=== PATIENT | female | born 1970 | race American Indian/Alaskan Native ===

== ENCOUNTER 2019-03-18 14:16 | Emergency (ER) | payer SELFPAY ==
--- NOTE | 2019-03-18 15:55 | Event Note ---
ED Screening Note Date of service: 03/18/19 Time: 15:52 ED Screening Note: Pt complains of shortness of breath x this morning. states cough x 2 days with brown/green mucus +smoker and CHF denies hx of asthma denies fever + left leg pain This initial assessment/diagnostic orders/clinical plan/treatment(s) is/are subject to change based on patients health status, clinical progression and re- assessment by fellow clinical providers in the ED. Further treatment and workup at subsequent clinical providers discretion. Patient/guardian urged not to elope from the ED as their condition may be serious if not clinically assessed and managed. Initial orders include: CXR labs US
[2019-03-18] MEDS ORDERED: ASPIRIN 81 MG TAB CHEW PO ONE (15:57)
--- NOTE | 2019-03-18 16:39 | XRay Report ---
CHEST 2 VIEWS INDICATION / CLINICAL INFORMATION: shortness of breath, chest pain. COMPARISON: None available. FINDINGS: SUPPORT DEVICES: None. HEART / MEDIASTINUM: Cardiomegaly.. LUNGS / PLEURA: Trace interstitial edema noted bilaterally. Tiny pleural effusions. Signer Name: Bernardo Shell MD Signed: 03/18/2019 4:35 PM Workstation Name: [id number]
--- NOTE | 2019-03-18 17:02 | Vascular Lab Report ---
DUPLEX DOPPLER LOWER EXTREMITY VEINS, LEFT INDICATION: pain. TECHNIQUE: Duplex doppler imaging was performed through the veins of the left lower extremity using venous compr ession and other maneuvers. COMPARISON: None available. FINDINGS: Common Femoral vein: Negative. Femoral vein: Negative. Popliteal vein: Negative. Calf veins: Negative. Additional findings: None. IMPRESSION: 1. No sonographic evidence for DVT in the left lower extremity. Signer Name: Luan Orellana MD Signed: 03/18/2019 4:57 PM Workstation Name: [id number]
[2019-03-18] MEDS ORDERED: NITROGLYCERIN 0.4 MG TAB SUBL SL PRN (17:22)
[2019-03-18] MEDS ORDERED: FUROSEMIDE 40 MG/4 ML INJ IV ONE (17:22)
[2019-03-18 18:23] LABS: Hematocrit 38.1 % (30.3-42.9); Hemoglobin 12.6 gm/dl (10.1-14.3); Mean Corpuscular HGB Conc 33 % (30-34); Mean Corpuscular Volume 97 fl (79-97); Platelet Count 174 K/mm3 (140-440); Red Blood Count 3.93 M/mm3 (3.65-5.03); Red Cell Distribution Width 18.7 % (13.2-15.2)
[2019-03-18] MEDS ORDERED: ASPIRIN 81 MG TAB CHEW ONE (18:37)
[2019-03-18 18:43] LABS: BUN/Creatinine Ratio 14; Blood Urea Nitrogen 10 mg/dL (7-17); Calcium 9.2 mg/dL (8.4-10.2); Hemolysis Index 0
[2019-03-18 18:47] LABS: Albumin 3.8 g/dL (3.9-5); Bilirubin,Direct 0.4 mg/dL (0-0.2)
--- NOTE | 2019-03-18 19:20 | Emergency Department Report ---
ED General Adult HPI - General Chief complaint: Dyspnea/Respdistress Stated complaint: SOB/COUGH/NUMBNESS L LEG Time Seen by Provider: 03/18/19 15:52 Source: patient Mode of arrival: Ambulatory Limitations: No Limitations - History of Present Illness Initial comments: Patient is a 49-year-old Female who states she's had some shortness of breath for the past 2 days. Patient states that the shortness of breath is accompanied with a productive cough. Cough is productive of clear sputum. Patient also states she's had some chest pressure as well as been continuous also for the last 2 days. Patient complains of numbness to the bilateral lower extremities with mild swelling. Patient states she has some pain when she takes a deep breath. Patient does have a history of congestive heart failure been out of her Lasix for approximately a week. Patient denies fevers chills nausea vomiting diarrhea at this time. Patient states the chest discomfort as 7 out of 10 in severity. - Related Data Previous Rx's Medication Instructions Recorded Last Taken Type Dicyclomine [Bentyl] 20 mg PO QID #10 tablet 03/18/19 Unknown Rx Furosemide [Lasix] 20 mg PO QDAY #30 tablet 03/18/19 Unknown Rx Ondansetron [Zofran Odt] 4 mg PO Q8HR #10 tab.rapdis 03/18/19 Unknown Rx traMADol [Ultram] 50 mg PO Q6HR PRN #12 tablet 03/18/19 Unknown Rx Allergies Allergy/AdvReac Type Severity Reaction Status Date / Time No Known Allergies Allergy Unverified 03/18/19 14:34 ED Review of Systems ROS: Stated complaint: SOB/COUGH/NUMBNESS L LEG Other details as noted in HPI Comment: All other systems reviewed and negative ED Past Medical Hx - Past Medical History Hx Congestive Heart Failure: Yes Hx Diabetes: Yes - Social History Smoking Status: Current Every Day Smoker Substance Use Type: None - Medications Home Medications: Home Medications Medication Instructions Recorded Confirmed Last Taken Type Dicyclomine [Bentyl] 20 mg PO QID #10 tablet 03/18/19 Unknown Rx Furosemide [Lasix] 20 mg PO QDAY #30 tablet 03/18/19 Unknown Rx Ondansetron [Zofran Odt] 4 mg PO Q8HR #10 tab.rapdis 03/18/19 Unknown Rx traMADol [Ultram] 50 mg PO Q6HR PRN #12 tablet 03/18/19 Unknown Rx ED Physical Exam - General Limitations: No Limitations General appearance: alert, in no apparent distress - Head Head exam: Present: atraumatic, normocephalic - Eye Eye exam: Present: normal appearance - ENT ENT exam: Present: mucous membranes moist - Neck Neck exam: Present: normal inspection - Respiratory Respiratory exam: Present: rales. Absent: normal lung sounds bilaterally, respiratory distress, wheezes, rhonchi - Cardiovascular Cardiovascular Exam: Present: regular rate, normal rhythm, normal heart sounds. Absent: systolic murmur, diastolic murmur, rubs, gallop - GI/Abdominal GI/Abdominal exam: Present: soft, normal bowel sounds. Absent: distended, tenderness, guarding, rebound - Extremities Exam Extremities exam: Present: normal inspection - Back Exam Back exam: Present: normal inspection - Neurological Exam Neurological exam: Present: alert, oriented X3 - Psychiatric Psychiatric exam: Present: normal affect, normal mood - Skin Skin exam: Present: warm, dry, intact, normal color. Absent: rash ED Course Vital Signs 03/18/19 03/18/19 14:20 18:31 Temperature 97.7 F Pulse Rate 107 H 98 H Respiratory 18 Rate Blood Pressure 167/108 162/102 O2 Sat by Pulse 99 Oximetry - Reevaluation(s) Reevaluation #1: 03/18/19 19:18 Patient's last been reviewed. She's had 2 negative troponins. Patient's BNP is elevated and with the patient having some trace interstitial edema on chest x- ray does appear that the patient is an exacerbation of her congestive heart failure. Patient also has a slight elevation of her bilirubin which was un expected. Asked the patient does she have any pain when she eats and she does confirm that for the past month she's had some increased pain with eating. Patient states the pain is in the left upper quadrant and epigastrium with some radiation into the chest. Ultrasound of the patient's gallbladder will be done to rule out cholecystitis versus cholelithiasis. ED Medical Decision Making - Lab Data Result diagrams: 03/18/19 17:46 03/18/19 17:46 Lab Results 03/18/19 03/18/19 03/18/19 Range/Units 17:46 17:46 17:46 WBC 5.1 (4.5-11.0) K/mm3 RBC 3.93 (3.65-5.03) M/mm3 Hgb 12.6 (10.1-14.3) gm/dl Hct 38.1 (30.3-42.9) % MCV 97 (79-97) fl MCH 32 (28-32) pg MCHC 33 (30-34) % RDW 18.7 H (13.2-15.2) % Plt Count 174 (140-440) K/mm3 Sodium 139 (137-145) mmol/L Potassium 4.0 (3.6-5.0) mmol/L Chloride 103.9 (98-107) mmol/L Carbon Dioxide 21 L (22-30) mmol/L Anion Gap 18 mmol/L BUN 10 (7-17) mg/dL Creatinine 0.7 (0.7-1.2) mg/dL Estimated GFR > 60 ml/min BUN/Creatinine Ratio 14 % Glucose 215 H (65-100) mg/dL Calcium 9.2 (8.4-10.2) mg/dL Total Bilirubin 2.80 H (0.1-1.2) mg/dL Direct Bilirubin 0.4 H (0-0.2) mg/dL Indirect Bilirubin 2.4 mg/dL AST 13 (5-40) units/L ALT 8 (7-56) units/L Alkaline Phosphatase 70 (35-129) units/L Troponin T < 0.010 (0.00-0.029) ng/mL NT-Pro-B Natriuret Pep (0-450) pg/mL Total Protein 7.2 (6.3-8.2) g/dL Albumin 3.8 L (3.9-5) g/dL Albumin/Globulin Ratio 1.1 % 03/18/19 03/18/19 Range/Units 17:46 17:46 WBC (4.5-11.0) K/mm3 RBC (3.65-5.03) M/mm3 Hgb (10.1-14.3) gm/dl Hct (30.3-42.9) % MCV (79-97) fl MCH (28-32) pg MCHC (30-34) % RDW (13.2-15.2) % Plt Count (140-440) K/mm3 Sodium (137-145) mmol/L Potassium (3.6-5.0) mmol/L Chloride (98-107) mmol/L Carbon Dioxide (22-30) mmol/L Anion Gap mmol/L BUN (7-17) mg/dL Creatinine (0.7-1.2) mg/dL Estimated GFR ml/min BUN/Creatinine Ratio % Glucose (65-100) mg/dL Calcium (8.4-10.2) mg/dL Total Bilirubin (0.1-1.2) mg/dL Direct Bilirubin (0-0.2) mg/dL Indirect Bilirubin mg/dL AST (5-40) units/L ALT (7-56) units/L Alkaline Phosphatase (35-129) units/L Troponin T < 0.010 (0.00-0.029) ng/mL NT-Pro-B Natriuret Pep 7486 H (0-450) pg/mL Total Protein (6.3-8.2) g/dL Albumin (3.9-5) g/dL Albumin/Globulin Ratio % - EKG Data -: EKG Interpreted by Me - EKG Data 03/18/19 19:19 EKG shows sinus tachycardia rate of 107. [place] is slightly leftward. Intervals show a prolonged QT. Patient with anteroseptal Q waves. There are no ST segment elevations or depressions. - Radiology Data Radiology results: report reviewed, image reviewed (ultrasound of the abdomen shows no evidence of sonographic) DUPLEX DOPPLER LOWER EXTREMITY VEINS, LEFT INDICATION: pain. TECHNIQUE: Duplex doppler imaging was performed through the veins of the left lower extremity using venous compression and other maneuvers. COMPARISON: None available. FINDINGS: Common Femoral vein: Negative. Femoral vein: Negative. Popliteal vein: Negative. Calf veins: Negative. Additional findings: None. IMPRESSION: 1. No sonographic evidence for DVT in the left lower extremity. Signer Name: Luan Orellana MD Signed: 03/18/2019 4:57 PM Workstation Name: [id number] CHEST 2 VIEWS INDICATION / CLINICAL INFORMATION: shortness of breath, chest pain. COMPARISON: None available. FINDINGS: SUPPORT DEVICES: None. HEART / MEDIASTINUM: Cardiomegaly.. LUNGS / PLEURA: Trace interstitial edema noted tobias aterally. Tiny pleural effusions. Signer Name: Bernardo Shell MD Signed: 03/18/2019 4:35 PM Workstation Name: [id number] - Medical Decision Making Patient is a 49-year-old asthmatic female presenting with shortness of breath for the past several days. The patient states that she ran out of her Lasix approximately ago. Patient also does have some pain with eating for possibly her mouth. Patient was given IV Lasix here in the emergency department she has diuresis. Patient is able to her to him from the bathroom with these currently. Patient's chest pain has subsided she has 2 negative troponins. 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 Patient restarted on her Lasix. Patient given GI for follow-up as well concerning the hyperbilirubinemia. Critical care attestation.: If time is entered above; I have spent that time in minutes in the direct care of this critically ill patient, excluding procedure time. ED Disposition Clinical Impression: Atypical chest pain, Hyperbilirubinemia CHF exacerbation Qualifiers: Heart failure type: unspecified Qualified Code(s): I50.9 - Heart failure, unspecified Disposition: TO HOME OR SELFCARE Is pt being admited?: No Does the pt Need Aspirin: No Condition: Stable Instructions: Heart Failure (ED), Chest Pain (ED), Biliary Colic (ED) Additional Instructions: Please follow-up with your oil spreader operator this week Prescriptions: Dicyclomine [Bentyl] 20 mg PO QID #10 tablet Furosemide [Lasix] 20 mg PO QDAY #30 tablet traMADol [Ultram] 50 mg PO Q6HR PRN #12 tablet PRN Reason: Pain Ondansetron [Zofran Odt] 4 mg PO Q8HR #10 tab.alison Referrals: PRIMARY CARE, [Primary Care Provider] - 3-5 Days [facility] [Provider Group] - 3-5 Days Time of Disposition: 22:22
--- NOTE | 2019-03-18 22:00 | Ultrasound Report ---
ULTRASOUND ABDOMEN, LIMITED (RIGHT UPPER QUADRANT) INDICATION: epigastric pain. COMPARISON: None available. FINDINGS: Pancreas: Visualized portion shows no significant abnormality. Liver: Normal. Gallbladder: Normal. Bile ducts: Normal. Common Bile Duct measures 5 mm. Free fluid: None. Additional Findings: None. IMPRESSION: 1. No sonographic abnormality of the right upper quadrant. Signer Name: Luan Orellana MD Signed: 03/18/2019 9:55 PM Workstation Name: [id number]
[2019-03-18 23:19] VITALS: BP 155/90
== END 2019-03-18 22:30 | disposition home or self-care (01) ==
LOC: ED 14:16
DX: I50.9 Heart failure, unspecified (principal); E80.6 Other disorders of bilirubin metabolism; F17.200 Nicotine dependence, unspecified, uncomplicated
CPT/HCPCS: 36415; 71046; 76705; 80048; 80076; 83880; 84484; 85027; 93005; 93010; 93971; 96374; 99285; J1940

== ENCOUNTER 2019-03-31 20:43 | Emergency (ER) | payer SELFPAY ==
--- NOTE | 2019-03-31 20:57 | Event Note ---
ED Screening Note ED Screening Note: right sided rib pain that began today +n/v no fever no diarrhea no urinary sx PMHx CHF, DM, HTN states she took her medicines today This initial assessment/diagnostic orders/clinical plan/treatment(s) is/are subject to change based on patients health status, clinical progression and re- assessment by fellow clinical providers in the ED. Further treatment and workup at subsequent clinical providers discretion. Patient/guardian urged not to elope from the ED as their condition may be serious if not clinically assessed and managed. Initial orders include: labs, UA, EKG, XR
[2019-03-31] MEDS ORDERED: KETOROLAC 30 MG/1 ML INJ IV ONE (21:40)
--- NOTE | 2019-03-31 21:41 | Emergency Department Report ---
ED General Adult HPI - General Chief complaint: Back Pain/Injury Stated complaint: NAUSEA/FLANK PAIN Time Seen by Provider: 03/31/19 20:55 Source: patient, RN notes reviewed, old records reviewed Mode of arrival: Ambulatory Limitations: No Limitations - History of Present Illness Initial comments: This is a 49-year-old female. This patient is not known to this provider previously. She typically follows at [facility]. Has a history of hypertension, obesity and congestive heart failure. The patient reports being in her usual state of health earlier on today, when at or around 8:00 in the morning, she began to cough, and then developed constant right sided thoracic, posterior scapular, and breast wall pain. The pain is sharp and throbbing and constant. It increases with palpation and coughing. The patient endorses cough, and chronic shortness of breath. She denies DVT and pulmonary embolism risk factors. She denies urinary symptoms. She has chronic lower extremity edema which she does not believe is new, worsened or different. During the entire history and physical examination, I am plaster helper and escorted by Ms. Joi Peter -: Sudden Location: back Radiation: other Consistency: other Improves with: other Worsens with: other - Related Data Previous Rx's Medication Instructions Recorded Last Taken Type Dicyclomine [Bentyl] 20 mg PO QID #10 tablet 03/18/19 Unknown Rx Furosemide [Lasix] 20 mg PO QDAY #30 tablet 03/18/19 Unknown Rx Ondansetron [Zofran Odt] 4 mg PO Q8HR #10 tab.rapdis 03/18/19 Unknown Rx Acetaminophen [Non-Aspirin Extra 500 mg PO Q6HR PRN #30 tablet 03/31/19 Unknown Rx Strength] Albuterol Sulfate [Proair 90 mcg IH Q4HR PRN #2 aer.pow.ba 03/31/19 Unknown Rx Respiclick] Furosemide [Lasix TAB] 40 mg PO BID #14 tablet 03/31/19 Unknown Rx Ibuprofen [Motrin] 600 mg PO Q8H PRN #30 tablet 03/31/19 Unknown Rx Magnesium Oxide 400 mg PO QDAY #10 tablet 03/31/19 Unknown Rx Allergies Allergy/AdvReac Type Severity Reaction Status Date / Time No Known Allergies Allergy Unverified 03/18/19 14:34 ED Review of Systems ROS: Stated complaint: NAUSEA/FLANK PAIN Other details as noted in HPI Constitutional: denies: fever, weakness ENT: congestion Respiratory: cough, shortness of breath Cardiovascular: edema. denies: chest pain Gastrointestinal: denies: nausea, vomiting Genitourinary: denies: dysuria Musculoskeletal: arthralgia, myalgia Skin: denies: lesions Neurological: denies: weakness Psychiatric: anxiety Hematological/Lymphatic: denies: easy bleeding ED Past Medical Hx - Past Medical History Previous Medical History?: Yes Hx Hypertension: Yes Hx Congestive Heart Failure: Yes Hx Diabetes: Yes - Surgical History Past Surgical History?: Yes Additional Surgical History: Tubal Ligation - Social History Smoking Status: Current Every Day Smoker Substance Use Type: None - Medications Home Medications: Home Medications Medication Instructions Recorded Confirmed Last Taken Type Dicyclomine [Bentyl] 20 mg PO QID #10 tablet 03/18/19 Unknown Rx Furosemide [Lasix] 20 mg PO QDAY #30 tablet 03/18/19 Unknown Rx Ondansetron [Zofran Odt] 4 mg PO Q8HR #10 tab.rapdis 03/18/19 Unknown Rx Acetaminophen [Non-Aspirin Extra 500 mg PO Q6HR PRN #30 tablet 03/31/19 Unknown Rx Strength] Albuterol Sulfate [Proair 90 mcg IH Q4HR PRN #2 aer.pow.ba 03/31/19 Unknown Rx Respiclick] Furosemide [Lasix TAB] 40 mg PO BID #14 tablet 03/31/19 Unknown Rx Ibuprofen [Motrin] 600 mg PO Q8H PRN #30 tablet 03/31/19 Unknown Rx Magnesium Oxide 400 mg PO QDAY #10 tablet 03/31/19 Unknown Rx ED Physical Exam - General Limitations: No Limitations, Other (plaster helper by Ms. Joi Peter) General appearance: alert, in no apparent distress - Head Head exam: Present: atraumatic, normocephalic - Eye Eye exam: Present: normal appearance, EOMI. Absent: nystagmus - ENT ENT exam: Present: normal exam, normal orophraynx, mucous membranes moist, normal external ear exam - Neck Neck exam: Present: normal inspection, full ROM. Absent: tenderness, meningismus - Respiratory Respiratory exam: Present: wheezes, rales, chest wall tenderness - Cardiovascular Cardiovascular Exam: Present: normal rhythm, tachycardia, normal heart sounds. Absent: systolic murmur, diastolic murmur, rubs, gallop - GI/Abdominal GI/Abdominal exam: Present: soft. Absent: distended, tenderness, guarding, rebound, rigid, pulsatile mass - Extremities Exam Extremities exam: Present: normal inspection, full ROM, pedal edema, other (2+ pulses noted in the bilateral upper, lower extremities. There is no long bone tenderness. Musculoskeletal compartments are soft. The pelvis is stable.). Absent: calf tenderness - Back Exam Back exam: Present: normal inspection. Absent: tenderness, CVA tenderness (R), CVA tenderness (L), paraspinal tenderness, vertebral tenderness - Neurological Exam Neurological exam: Present: alert, oriented X3, other (there is no facial droop. The tongue is midline. Extraocular movements are intact bilaterally. Patient speaking in full complete sentences. Shoulder shrug is intact bilaterally. Hearing is grossly intact bilaterally. Visual acuity intact to finger counting and color perception at a close distance. 5/5 strength 4 extremities. Sensation intact to light touch in 4 extremities.). Absent: motor sensory deficit - Psychiatric Psychiatric exam: Present: anxious - Skin Skin exam: Present: warm, dry, intact, normal color. Absent: rash ED Course Vital Signs 03/31/19 03/31/19 03/31/19 20:50 21:46 22:00 Temperature 98.7 F Pulse Rate 121 H 115 H Respiratory 20 22 Rate Blood Pressure 204/114 177/109 O2 Sat by Pulse 96 100 97 Oximetry 03/31/19 03/31/19 03/31/19 22:16 22:30 22:40 Temperature Pulse Rate 108 H 107 H 107 H Respiratory 21 22 18 Rate Blood Pressure 180/110 182/110 182/110 O2 Sat by Pulse 99 100 Oximetry 03/31/19 22:45 Temperature Pulse Rate 89 Respiratory 18 Rate Blood Pressure 156/95 O2 Sat by Pulse 97 Oximetry - Reevaluation(s) Reevaluation #1: 03/31/19 22:23 Torrential diagnosis, including not limited to: Costochondritis, pneumonia, congestive heart failure, bronchitis, acute coronary syndrome Assessment and plan: 49-year-old female with reproducible back, chest wall pain and breast pain, very faint rales on physical examination, lower extremity edema, tachycardia suspect CHF, with hypertensive urgency, and reproducible muscular pain. X-ray the chest interpretation is reviewed and appreciated, however, I think it is unlikely the patient has reactive airway disease. She denies DVT and pulmonary embolism risk factors. She is low risk by well's criteria. We will treat her symptoms, given labetalol for hypertension, and tachycardia, Toradol for pain, and we will reassess. Her EKG today is abnormal, but it appears to be unchanged from her prior EKG. She endorses no urinary symptoms, there is no CVA tenderness, therefore, kidney infection is unlikely. Reevaluation #2: 03/31/19 22:49 Tachycardia improved. Hypertension improved. Laboratory studies reviewed and appreciated. Patient endorses more than 8 hours of constant back and chest wall pain, troponin negative times one, therefore, this is unlikely to be an acute myocardial infarction. Patient may be discharged with pain medicine, cough medicine, we will adjust her diuretic dose, she can follow-up with an outpatient primary care doctor. Reevaluation #3: 03/31/19 22:54 Elevated bilirubin reviewed and appreciated, nonspecific finding, this was present on previous evaluation, the patient can follow-up with an outpatient primary care doctor or classroom instructor for this. This is unlikely to be congestive hepatopathy at this time. Faint rales are still present at this time. Reevaluation #4: 03/31/19 23:48 ct angio chest negative for acute disease non emergent incidental findings noted patient may follow up as an outpatient counseled to have her pmd obtain er records to follow up on non emergent findings ED Medical Decision Making - Lab Data Result diagrams: 03/31/19 21:42 03/31/19 21:42 Vital Signs 03/31/19 20:50 Temperature 98.7 F Pulse Rate 121 H Respiratory 20 Rate Blood Pressure 204/114 O2 Sat by Pulse 96 Oximetry Lab Results 03/31/19 Range/Units 21:42 WBC 7.6 (4.5-11.0) K/mm3 RBC 3.82 (3.65-5.03) M/mm3 Hgb 12.6 (10.1-14.3) gm/dl Hct 38.1 (30.3-42.9) % MCV 100 H (79-97) fl MCH 33 H (28-32) pg MCHC 33 (30-34) % RDW 17.7 H (13.2-15.2) % Plt Count 182 (140-440) K/mm3 - EKG Data -: EKG Interpreted by Pr EKG shows normal: sinus rhythm Rate: tachycardia - EKG Data 03/31/19 22:25 The EKG today shows a sinus tachycardia, 114 bpm, left axis deviation, borderline left anterior fascicular block, left atrial enlargement, and motion artifact. The EKG is abnormal, it is unchanged from prior EKG from March 2019, it is not consistent with a stemi - Radiology Data Radiology results: pending, report reviewed, image reviewed Critical care attestation.: If time is entered above; I have spent that time in minutes in the direct care of this critically ill patient, excluding procedure time. ED Disposition Clinical Impression: Musculoskeletal back pain, Chest wall pain Hypertension Qualifiers: Hypertension type: unspecified Qualified Code(s): I10 - Essential (primary) hypertension Disposition: TO HOME OR SELFCARE Is pt being admited?: No Does the pt Need Aspirin: No Condition: Stable Additional Instructions: Increase Lasix consumption/dose to 40 mg twice daily for the next week. Take the pain medications as needed and directed. Recommend follow-up with the primary care doctor or greenkeeper within the next 3-5 days. Return to the emergency room right away with projectile vomiting, change in mental status, confusion, inability to tolerate liquid feeds, new, worsened or different symptoms not present on initial emergency room evaluation. Take the magnesium supplementation as directed. do not take metformin for the enxt 2 days if patient takes this medication ct scan chest suggest right sided heart failure and other non emergent incidental findings. please have your primary doctor contact the medical records department to obtain labs and ct scan report and to follow up on non emergent incidental findings Prescriptions: Furosemide [Lasix TAB] 40 mg PO BID #14 tablet Magnesium Oxide 400 mg PO QDAY #10 tablet Ibuprofen [Motrin] 600 mg PO Q8H PRN #30 tablet PRN Reason: Pain Acetaminophen [Non-Aspirin Extra Strength] 500 mg PO Q6HR PRN #30 tablet PRN Reason: Pain , Severe (7-10) Albuterol Sulfate [Proair Respiclick] 90 mcg IH Q4HR PRN #2 aer.pow.ba PRN Reason: Wheezing Referrals: [facility] [Provider Group] - 3-5 Days [facility] [Provider Group] - 3-5 Days [facility] [Provider Group] - 3-5 Days
--- NOTE | 2019-03-31 22:18 | XRay Report ---
CHEST 2 VIEWS INDICATION / CLINICAL INFORMATION: Dyspnea. Flank pain. COMPARISON: 2 views of the chest from 03/18/2019. FINDINGS: SUPPORT DEVICES: None. HEART / MEDIASTINUM: Stable. LUNGS / PLEURA: No significant pulmonary or pleural abnormality. No pneumothorax. ADDITIONAL FINDINGS: No significant additional findings. IMPRESSION: 1. No acute abnormality of the chest. 2. Stable cardiomegaly. Signer Name: Francisco العراقي MD Signed: 03/31/2019 10:14 PM Workstation Name: [id number]
[2019-03-31 22:23] LABS: Hematocrit 38.1 % (30.3-42.9); Hemoglobin 12.6 gm/dl (10.1-14.3); Red Blood Count 3.82 M/mm3 (3.65-5.03)
[2019-03-31 22:24] LABS: Mean Corpuscular HGB Conc 33 % (30-34); Mean Corpuscular Volume 100 fl (79-97); Platelet Count 182 K/mm3 (140-440); Red Cell Distribution Width 17.7 % (13.2-15.2)
[2019-03-31 22:31] LABS: INR 1.45 (0.87-1.13)
[2019-03-31] MEDS ORDERED: MAGNESIUM SULFATE 2 GM/50 ML BAG IV ONE (22:36)
[2019-03-31 22:40] LABS: Alanine Aminotransferase 13 units/L (7-56); Albumin 3.5 g/dL (3.9-5); BUN/Creatinine Ratio 16; Blood Urea Nitrogen 13 mg/dL (7-17); Calcium 9.1 mg/dL (8.4-10.2); Hemolysis Index 6
[2019-03-31] MEDS ORDERED: FUROSEMIDE 20 MG/2 ML INJ IV ONE (22:45)
[2019-03-31 22:48] VITALS: BP 156/95
[2019-03-31] MEDS ORDERED: MORPHINE 4 MG/1 ML INJ IV ONE (22:55)
[2019-03-31] MEDS ORDERED: ALBUTEROL 2.5 MG/3 ML NEBU IH ONE (23:37)
--- NOTE | 2019-03-31 23:39 | Cat Scan Report ---
CTA CHEST WITH IV CONTRAST, 03/31/2019 INDICATION: Shortness of breath. TECHNIQUE: Axial CT images were obtained through the chest after injection of IV contrast. Coronal oblique 2-D reconstruction images were produced. 3 plane MIP reconstruction images were produced at an [employer] workstation. All CTs at this facility utilize dose reduction techniques including automated expos ure control, iterative reconstruction and weight based dosing when appropriate to reduce patient radi ation dose to as low as reasonable achievable. COMPARISON: Chest radiograph, 03/31/2019 FINDINGS: No filling defects are visualized within the central or segmental pulmonary arteries to suggest pulmo nary embolism. The heart is moderately enlarged. Atherosclerotic calcifications are demonstrated maru g the aortic arch area evaluation of the lung parenchyma demonstrates no focal airspace disease or pl eural effusion. Limited evaluation of the upper abdomen shows no evidence of acute abnormality. There is reflux of co ntrast into the hepatic veins suggesting right heart dysfunction. Also incidentally noted is enlargem ent of the thyroid gland, which is incompletely visualized. Evaluation of bony structures demonstrates no evidence of destructive bony lesion. IMPRESSION: 1. No evidence of pulmonary embolism or acute parenchymal process. 2. Cardiomegaly with suggestion of right heart dysfunction. 3. Enlargement of the visualized portions of the thyroid gland. A nonemergent thyroid ultrasound is s uggested for better evaluation when the patient's clinical condition permits. Signer Name: Norma Alvarado MD Signed: 03/31/2019 11:35 PM Workstation Name: [id number]
== END 2019-04-01 00:25 | disposition home or self-care (01) ==
LOC: ED 20:43
DX: M54.9 Dorsalgia, unspecified (principal); R07.89 Other chest pain; R11.2 Nausea with vomiting, unspecified; I11.0 Hypertensive heart disease with heart failure; I50.9 Heart failure, unspecified; E11.9 Type 2 diabetes mellitus without complications; F17.200 Nicotine dependence, unspecified, uncomplicated; Z98.51 Tubal ligation status; Z79.899 Other long term (current) drug therapy
CPT/HCPCS: 36415; 71046; 71275; 80053; 83735; 84443; 84484; 85027; 85379; 85610; 85730; 93005; 93010; 96365; 96375; 99284; J1885; J1940; J3475; Q9967